=== PATIENT | female | born 1935 | race Caucasian/White ===

== ENCOUNTER 2016-12-03 11:39 | Emergency (ER) | payer MEDICARE, OTHER ==
[2016-12-03] MEDS ORDERED: PROAIR HFA8.5 GM INH (11:52)
[2016-12-03] MEDS ORDERED: TRETINOIN20 G3 TP (11:53)
[2016-12-03] MEDS ORDERED: MAXZIDE 37.5 M1 EAC1 PO (11:54)
[2016-12-03] MEDS ORDERED: LANSOPRAZOLE PO (11:54)
[2016-12-03] MEDS ORDERED: LOVASTATIN20 M2 PO (11:55)
[2016-12-03] MEDS ORDERED: AMLODIPINE BES2.5 M1 PO (12:23)
[2016-12-03] MEDS ORDERED: FISH OIL 11000 MG/CA PO (12:24)
[2016-12-03] MEDS ORDERED: ASPIRIN81 M1 PO (12:26)
[2016-12-03] MEDS ORDERED: [UNRECOGNIZED DRUG - OTHER] PO (12:26)
[2016-12-03] MEDS ORDERED: CALCIUM CARBON600 M2 PO (12:26)
[2016-12-03] MEDS ORDERED: CENTRUM COMPLE1 EAC1 PO (12:26)
[2016-12-03] MEDS ORDERED: TYLENOL EXTRA500 M1 PO (12:27)
[2016-12-03] MEDS ORDERED: IBUPROFEN200 M2 PO (12:27)
[2016-12-03] MEDS ORDERED: OCUVITE EYE +1 EACH PO (12:27)
[2016-12-03] MEDS ORDERED: COLACE100 M1 PO (12:27)
[2016-12-03] MEDS ORDERED: MIRALAX17 G2 PO (12:27)
[2016-12-03 12:51] LABS: BASO % 0.7 % (0-2); EOS % 3.4 % (0-7); EOSINOPHIL ABSOLUTE COUNT 0.2 tho/cmm (0.0-0.7); HCT-HEMATOCRIT 35.6 % (34.0-49.0); HGB-HEMOGLOBIN 12.2 gm/dl (12.0-15.5); IMMATURE GRANULOCYTES ABSOLUTE 0.01 tho/cmm (0-0.03); IMMATURE GRANULOCYTES PERCENT 0.2 % (0-0.3); LYMPH % 17.2 % (20-45); LYMPH ABSOLUTE COUNT 0.8 tho/cmm (0.8-4.5); MCH (MEAN CORPUSCULAR HGB) 31.9 pg (28.0-32.0); MCHC MEAN CORPUSCULAR HGB CONC 34.3 % (32.0-36.0); MEAN PLATELET VOLUME 8.9 cmc (9.4-12.4); MONO % 12.2 % (0-12); MONOCYTE ABSOLUTE COUNT 0.5 tho/cmm (0.0-1.2); NEUTROPHIL ABSOLUTE COUNT 2.9 tho/cmm (1.6-8.0); NEUTROPHIL-AUTOMATED 2.9 tho/cmm (1.6-8.0); NEUTROPHILS % 66.3 % (40-80); PLATELET COUNT 227 tho/cmm (150-450); RED BLOOD COUNT 3.83 mil/cmm (4.00-5.20); RED CELL DISTRIBUTION WIDTH 12.8 % (12.4-16.4); WHITE BLOOD COUNT 4.4 tho/cmm (4.0-10.0)
[2016-12-03 13:04] LABS: ANION GAP 14 mmol/L (0-20); BLOOD UREA NITROGEN 22 mg/dl (6-24); CALCIUM 9.9 mg/dl (8.5-10.5); CARBON DIOXIDE-VENOUS 26 mmol/L (22-32); CHLORIDE 96 mmol/l (96-110); CREATININE 1.07 mg/dl (0.50-1.10); GLUCOSE 101 mg/dL (70-110); POTASSIUM 4.3 mmol/L (3.7-5.1); SODIUM 132 mmol/L (135-145); eGFR VALUE FOR BLACK 56 mL/Min
== END 2016-12-03 15:13 ==
LOC: EDMED 11:39
PROVIDERS: Emergency Medicine
DX: M54.6 Pain in thoracic spine (principal); R91.8 Other nonspecific abnormal finding of lung field; I10 Essential (primary) hypertension; E78.5 Hyperlipidemia, unspecified; Z85.3 Personal history of malignant neoplasm of breast; Z85.118 Personal history of other malignant neoplasm of bronchus and lung; Z90.49 Acquired absence of other specified parts of digestive tract; Z87.891 Personal history of nicotine dependence; Z90.12 Acquired absence of left breast and nipple; Z90.2 Acquired absence of lung [part of]
CPT/HCPCS: J7030; Q9967